=== PATIENT | male | born 2000 | race Caucasian/White ===

== ENCOUNTER 2020-08-29 12:03 | Emergency (ER) | payer OTHER, SELFPAY ==
[2020-08-29 12:12] VITALS: BP 145/95; PULSE 82; RESP 16; TEMP 37.3; O2SAT 99
--- NOTE | 2020-08-29 12:18 | ED.GENADULT ---
HPI - General Adult General Chief complaint: Skin/Abscess/Foreign Body Stated complaint: Rash on both Arms Time Seen by Provider: 08/29/20 12:18 Source: patient and RN notes reviewed Mode of arrival: ambulatory Limitations: no limitations History of Present Illness HPI narrative: 19-year-old male presents with complaints of red, raised, itching, burning, rash to bilateral upper arms for the past 3 day. Yemi reports increasing symptoms throughout the past 24 hours. ?Doing yard work on 08/26/2020 and rash appeared 1-2 days later. ?Hydrocortisone without relief. ?Denies new detergent, personal hygiene products, or laundry detergent. ?No new foods or medications. ?No swelling, bleeding, or drainage. Denies fever or chills, headaches, weakness, fatigue, myalgia, facial swelling, or tongue swelling. ?Denies dyspnea. Tolerating po intake well. ?Remains active. The patient reports he was diagnosed with COVID-05 July 2019. ?The patient reports he is not waiting for the results of a COVID-19 lab test. The patient reports he does not ?have a new or worsening cough. ?Denies chest pain. The patient reports he does not ?have any rhinorrhea, congestion, loss of taste or smell, sore throat, nausea, vomiting, abdominal pain, and diarrhea. ? Denies recent traveling. ?Denies concerns for COVID-19 or exposures. At this time, the patient is not suspected of having COVID-19. Related Data Allergies Allergy/AdvReac Type Severity Reaction Status Date / Time No Known Allergies Allergy Unknown Verified 08/29/20 12:16 Review of Systems Review of Systems: Narrative: CONSTITUTIONAL: Denies fever, chills, sweats. EYES: Denies visual changes, redness, discharge. ENT: Denies rhinorrhea, congestion, sore throat, otalgia CARDIOVASCULAR: Denies chest pain, palpitations, edema. RESPIRATORY: Denies dyspnea, wheezing, cough. GASTROINTESTINAL: Denies abdominal pain, nausea, vomiting, diarrhea. SKIN: Complains of red, burning, and itching rash to bilateral upper arm. Denies drainage. MUSCULOSKELETAL: Denies acute back pain, joint pain, or myalgia. NEUROLOGIC: Denies numbness or focal weakness. PSYCHIATRIC: Denies anxiety or depression. All other systems reviewed are negative, except as documented in HPI. [facility] Past Medical History Medical History (Updated 08/30/20 @ 00:00 by Sherry Porras) No significant past medical history Surgical History Surgical History (Updated 08/29/20 @ 12:33 by AVI Stephens) No significant past surgical history Family History Family History (Updated 08/29/20 @ 12:34 by AVI Stephens) Father Acute myocardial infarction, Onset Age: 39 Hypertension Mother Alive and well Social History Social History (Updated 08/29/20 @ 12:35 by AVI Stephens) Smoking status: Never smoker Tobacco type: cigarettes Second hand tobacco smoke exposure: Yes (occasionally) Alcohol intake: current Substance use: never Substance use type: does not use Living arrangements: with family Occupation/Education: occupation Gender identity (if verbalized by the patient): Female Sexual Orientation (if Verbalized by the Patient): Straight or Heterosexual Comments At time of signature, agree with the nurse past medical, surgical, social, and family history. There is no relevant family history pertinent to the presenting complaint. Exam Narrative: Exam Narrative: GENERAL: This is a well-nourished, well-developed patient, in no apparent distress. Talks in full sentences and ambulates with steady gait without dyspnea. HEAD: Normocephalic, atraumatic. EYES: PERRL. Sclera clear/white. Vision is grossly intact. EARS: External ears normal, auditory canals clear and without drainage, TMs normal without perforation. Hearing grossly intact. NOSE: External nose normal with no obvious nasal discharge, nares without redness, no rhinorrhea. THROAT: Mucous membranes moist, posterior pharynx clear. NECK: Neck
== END 2020-08-29 12:43 | disposition home or self-care (01) ==
PROVIDERS: Emergency Provider Nurse Practitioner Family
DX: L23.7 Allergic contact dermatitis due to plants, except food (principal)
CPT/HCPCS: 99203; G0463

== ENCOUNTER 2021-08-22 16:25 | Emergency (ER) | payer OTHER, SELFPAY ==
[2021-08-22 16:35] VITALS: BP 156/82; PULSE 102; RESP 16; TEMP 36.6; O2SAT 98
--- NOTE | 2021-08-22 16:48 | ED.ANIMALBIT ---
HPI - Animal Bite General Chief Complaint: Animal Bite Stated Complaint: left finger dog bite Time Seen by Provider: 08/22/21 16:49 Source: patient and RN notes reviewed Mode of arrival: ambulatory Limitations: no limitations History of Present Illness HPI narrative: 20-year-old male presents with concern for dog bite to his right hand. He reports 2 days ago he was bit by his own dog. Reports the palmar aspect of the third digit of the right hand has a puncture wound. He reports redness, mild swelling. He reports decreased range of motion in the digit, he is unable to fully flex the digit. He denies decreased sensation, strength in the digit. He denies fever, body aches, chills, sweats. MD complaint: animal bite Related Data Allergies Allergy/AdvReac Type Severity Reaction Status Date / Time No Known Allergies Allergy Unknown Verified 08/22/21 16:38 Review of Systems Review of Systems: CONSTITUTIONAL: Denies malaise, chills, sweats, or fever. SKIN: Reports puncture wound to the third digit of the right hand surrounded by redness, swelling. MUSCULOSKELETAL: Denies muscle skeletal pain. Reports decreased range of motion in the third digit of the right hand NEUROLOGIC: Denies numbness, weakness All systems reviewed & are unremarkable except as noted in HPI and below PMFSH Past Medical History Medical History (Updated 08/22/21 @ 16:55 by Dee Pruitt NP) No significant past medical history Surgical History Surgical History (Updated 08/29/20 @ 12:33 by AVI Stephens) No significant past surgical history Family History Family History (Updated 08/29/20 @ 12:34 by AVI Stephens) Father Acute myocardial infarction, Onset Age: 39 Hypertension Mother Alive and well Social History Social History (Updated 08/29/20 @ 12:35 by AVI Stephens) Smoking status: Never smoker Tobacco type: cigarettes Second hand tobacco smoke exposure: Yes (occasionally) Alcohol intake: current Substance use: never Substance use type: does not use Gender identity (if verbalized by the patient): Female Sexual Orientation (if Verbalized by the Patient): Straight or Heterosexual Comments At time of signature, agree with nursing past medical, surgical, social and family history. There is no relevant family history pertinent to the presenting complaint Exam Narrative: GENERAL: Well-appearing, well-nourished, and in no acute distress. HEAD: Normocephalic EYES: PERRLA, conjunctivae clear NECK: Supple. CHEST: Speaks in full sentences. No respiratory distress. HEART: Regular rate and rhythm. Normal and equal peripheral pulses. EXTREMITIES: Third of right hand has normal strength and sensation. 5/5 strength with digit flexion, extension, range of motion limited unable to fully flex the digit. No clubbing, cyanosis noted. Mild tenderness, induration, erythema noted between the PIP and MIP joints surrounding the puncture wound. Normal digital cascade with flexion of fingers, median, ulnar and radial nerve intact. Normal sensation of each side of finger. Can perform 'okay' sign, 'cross over finger test of index and middle fingers' and 'thumbs up' sign. No scissoring. Normal thumb opposition. Good capillary refill and radial pulse. Distal capillary refill less than 3 seconds. Patient is right/left hand dominant SKIN: Warn, dry, intact, pink. No rash NEURO: Alert and oriented x3. PSYCH: Normal mood and affect Course Course Emergency Course: Patient is aware of diagnosis, understands and agrees to treatment plan. Anticipatory guidance given. Patient agrees to follow-up as directed and is aware of reasons to seek care at the emergency department. Portions of this record may have been created with voice recognition software Level of Care: Express Care Visit Vital Signs Vital signs: Vital Signs Temperature 97.8 F 08/22/21 16:35 Pulse Rate 102 H 08/22/21 16:35 Respiratory Rate 16 06
== END 2021-08-22 17:00 | disposition home or self-care (01) ==
PROVIDERS: Emergency Provider Nurse Practitioner; PCP Nurse Practitioner Family
DX: S61.232A Puncture wound without foreign body of right middle finger without damage to nail, initial encounter (principal); W54.0XXA Bitten by dog, initial encounter
CPT/HCPCS: 99213; G0463